=== PATIENT | male | born 1960 | race Hispanic/Latino ===

== ENCOUNTER 2017-12-26 07:49 | Outpatient (CLI) | payer OTHER ==
--- NOTE | 2017-12-26 11:22 | CT ---
CT OF THE ABDOMEN AND PELVIS WITH IV CONTRAST: INDICATION: Right-sided abdominal pain with nausea on and off for 2 months. CONTRAST: 100 cc of Isovue 370. COMPARISON: Comparison was made with a prior CT from 01/07/09. FINDINGS: The liver, spleen, pancreas, adrenal glands, and kidneys appear within normal limits. No free fluid or enlarged lymph nodes are evident. There are mild vascular calcifications involving the abdominal aorta. There are scattered diverticula involving the colon. The appendix appears within normal limits. The bladder, rectum, and perirectal soft tissues are unremarkable. No definite acute osseous abnormality is evident. There is scattered degenerative and osteoarthritis change. IMPRESSION: 1. No definite CT explanation for the patient's abdominal pain. 2. Colonic diverticulosis without overt evidence of active diverticulitis. 3. Normal appendix. 4. Mild atherosclerotic disease of the abdominal aorta. POS: [facility]
== END 2017-12-26 07:50 | disposition home or self-care (01) ==
LOC: SCSCT 07:49
PROVIDERS: ATTEND Family Medicine
DX: R10.9 Unspecified abdominal pain (principal); K57.30 Diverticulosis of large intestine without perforation or abscess without bleeding; I70.0 Atherosclerosis of aorta
CPT/HCPCS: 74177